=== PATIENT | female | born 1970 | race Caucasian/White ===

== ENCOUNTER 2018-08-15 20:44 | Emergency (ER) | payer OTHER ==
[~2018-08-15] VITALS: Ht 165.1 cm; Wt 54.0 kg
[2018-08-15] MEDS ORDERED: MIRALAX17 GM PO (21:57)
[2018-08-16] MEDS ORDERED: Magnesium Citr296 ML PO (16:51)
== END 2018-08-15 23:15 | disposition home or self-care (01) ==
LOC: ER 20:44
DX: K59.00 Constipation, unspecified (principal); Z88.8 Allergy status to other drugs, medicaments and biological substances; Z79.899 Other long term (current) drug therapy
CPT/HCPCS: 74018; 99283-25

== ENCOUNTER 2018-08-16 14:05 | Emergency (ER) | payer OTHER ==
[~2018-08-16] VITALS: Ht 165.1 cm; Wt 54.0 kg
[~2018-08-16 14:05] MED LIST: MIRALAX17 GM PO
[2018-08-16] MEDS ORDERED: Magnesium Citr296 ML PO (16:51)
== END 2018-08-16 17:11 | disposition home or self-care (01) ==
LOC: ER 14:05
DX: K59.00 Constipation, unspecified (principal)
CPT/HCPCS: 46600; 99283